=== PATIENT | female | born 1940 | race Caucasian/White ===

== ENCOUNTER 2016-10-20 06:30 | Inpatient (IN) | payer MEDICARE, OTHER ==
[2016-10-12 11:48] LABS: BASOPHILS 0.5 %; BASOPHILS ABSOLUTE 0.03 10/3/uL (0.0-0.16); EOSINOPHILS 4.2 %; EOSINOPHILS ABSOLUTE 0.25 10/3/uL (0.0-0.53); HEMATOCRIT 39.2 % (36.0-48.0); IMMATURE GRANULOCYTES 0.2 %; IMMATURE GRANULOCYTES ABSOLUTE 0.01 10/3/uL (0.0-0.11); LYMPHOCYTES 22.5 %; LYMPHOCYTES ABSOLUTE 1.33 10/3/uL (0.67-4.30); MEAN CORPUS HGB CONC 33.2 g/dL (32.0-36.0); MEAN CORPUSCULAR HEMOGLOB 31.3 pg (26.0-34.0); MEAN CORPUSCULAR VOLUME 94.5 fL (80-100); MEAN PLATELET VOLUME 10.9 fL (9.2-13.0); MONOCYTES 7.3 %; MONOCYTES ABSOLUTE 0.43 10/3/uL (0.21-1.20); NEUTROPHILS 65.3 %; NEUTROPHILS ABSOLUTE 3.86 10/3/uL (2.02-8.40); PLATELET COUNT 207 10/3/uL (150-400); RBC DISTRIBUTION WIDTH 13.3 % (12.0-16.0); RED CELL COUNT 4.15 10/6/uL (4.0-5.6); WHITE BLOOD CELLS 5.9 10/3/uL (4.5-10.5)
[2016-10-12 11:49] LABS: MANUAL DIFF NO %
[2016-10-12 11:52] LABS: ASCORBIC ACID (UR NOT ORDER) 40 (NEG); BILIRUBIN, URINE NEGATIVE (NEG); KETONE, URINE NEGATIVE (NEG); LEUKOCYTE ESTERASE(NOT OR LARGE (NEG); WBC (NOT ORDERED) (RFLEX) 2 (0-5)
[2016-10-12 11:54] LABS: PROTIME (NOT ORD) 13.2 SEC (12.0-14.5)
[2016-10-12 12:04] LABS: A/G RATIO 1.2 (0.7-1.9); ALBUMIN 3.7 G/DL (3.5-5.0); ALKALINE PHOSPHATASE 78 U/L (45-117); BUN (BLOOD UREA NITROGEN) 21 MG/DL (6-23); CHLORIDE, SERUM 107 MMOL/L (96-112); CO2 (CARBON DIOXIDE) 29 MMOL/L (24-34); CREATININE 0.89 MG/DL (0.55-1.02); GFR AFRICAN AMERICAN 74 ML/MIN (>=60); GFR NON AFRICAN AMERICAN 64 ML/MIN (>=60); GLOBULIN 3.2 G/DL (2.5-4.1); GLUCOSE, SERUM 96 MG/DL (60-99); POTASSIUM, SERUM 3.6 MMOL/L (3.5-5.3); SGOT(AST) 12 U/L (5-40); SGPT(ALT) 19 U/L (5-65); SODIUM, SERUM 145 MMOL/L (135-148); TOTAL BILIRUBIN 0.4 MG/DL (0-1.2); TOTAL PROTEIN 6.9 G/DL (6.0-8.5)
--- NOTE | ~2016-10-20 | OP ---
Record Of Operation [facility] [address] [place]. [address] NAME: JALIL ARAYA : 42 STATUS : ADM IN PAT#: [id number] AGE: 75 ADM/REG DATE : 10/20/16 MR#: [id number] REPORT SERV DATE: 10/20/16 DICTATED BY: FRANCY ARAYA JR. DATE: 10/20/16 REPORT STATUS : Draft TRANSCRIBED BY: MODL DATE: 10/20/16 DATE OF PROCEDURE: 10/20/2016 PREOPERATIVE DIAGNOSES: Chronic atrial fibrillation, hypertension, arthritis, thymoma. POSTOPERATIVE DIAGNOSES: Chronic atrial fibrillation, hypertension, arthritis, thymoma. NAME OF OPERATION: Bronchoscopy, robotic-assisted right thoracoscopy with total thymectomy, intercostal nerve block. SURGEON: Francy Araya M.D. RESIDENT SURGEON: Hammad Stacy M.D. MANAGER PHARMACEUTICAL: Michel Mcdaniels and Twyla Villanueva. ANESTHESIA: General endotracheal. FINDINGS: The patient was noted to have no contraindications to resection on bronchoscopy. 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 This was completely resected. There was no other abnormalities noted. There was some mild adhesions involving the right lung that were easily taken down with the robotic electrocautery. Final pathology is pending. Margins were grossly negative. DETAILS OF OPERATION: After adequate general anesthesia, the patient was intubated. A bronchoscopy was performed noting no endobronchial lesions. A left-sided double-lumen endotracheal tube was then placed. The patient was then positioned in the supine position. The right chest was elevated. Chest was prepped and draped in a routine sterile fashion. A small incision was made along the right lateral chest wall. A Veress needle was introduced into chest cavity where the chest insufflated to 8 cm of pressure. Trocar and camera were then introduced. Two other trocars were also placed under direct visualization. A neurosurgical nurse practitioner port was also placed. The da Luis was then docked. The instruments were placed under direct visualization. The lung adhesions were taken down with electrocautery. The mass was identified. Both a traditional cautery as well as bipolar cautery was utilized to excise the mass. The venous branches coming off the innominate vein were divided with clips and cautery. The left chest was entered into the pleural space. After completely excising the mass has placed in a specimen bag and drawn through the neurosurgical nurse practitioner port. Adequate hemostasis was obtained. CO2 was removed from chest cavity. No chest tube was placed. An intercostal nerve block was performed. Lung was reinflated. The trocar sites were closed with running Vicryl sutures. The skin was closed with running monofilament suture. A Dermabond dressing was applied, and the procedure was terminated at this point. The patient tolerated the procedure well, taken back to the recovery room in stable condition. Record Of Operation [address] [place]. [address] NAME: JALIL ARAYA : 42 STATUS : ADM IN PAT#: [id number] AGE: 75 ADM/REG DATE : 10/20/16 MR#: [id number] REPORT SERV DATE: 10/20/16 DICTATED BY: FRANCY ARAYA JR. DATE: 10/20/16 REPORT STATUS : Draft TRANSCRIBED BY: JOSHUA DATE: 10/20/16 HARLAN/JOSHUA Francy Araya Jr., M.D. / [id number] CC: Pia Hudson Jr., Leland Pamela Sud, M.D.
[~2016-10-20 06:30] MED LIST: ALIGN4 MG PO; ASAB PO; AYR SALINE NAS; CYANO1000T PO; D 5000 PO; DIOV160 PO; TOPXL50 PO; VITC500 PO
[2016-10-21 06:17] LABS: BASOPHILS 0.2 %; BASOPHILS ABSOLUTE 0.02 10/3/uL (0.0-0.16); EOSINOPHILS 0 %; HEMOGLOBIN 10.8 g/dL (12.0-16.0); IMMATURE GRANULOCYTES 0.3 %; IMMATURE GRANULOCYTES ABSOLUTE 0.03 10/3/uL (0.0-0.11); LYMPHOCYTES 11.1 %; LYMPHOCYTES ABSOLUTE 1.15 10/3/uL (0.67-4.30); MEAN CORPUS HGB CONC 32.6 g/dL (32.0-36.0); MEAN CORPUSCULAR HEMOGLOB 30.4 pg (26.0-34.0); MEAN CORPUSCULAR VOLUME 93.2 fL (80-100); MEAN PLATELET VOLUME 11.4 fL (9.2-13.0); MONOCYTES 8.9 %; MONOCYTES ABSOLUTE 0.92 10/3/uL (0.21-1.20); NEUTROPHILS 79.5 %; NEUTROPHILS ABSOLUTE 8.25 10/3/uL (2.02-8.40); PLATELET COUNT 178 10/3/uL (150-400); RBC DISTRIBUTION WIDTH 13.4 % (12.0-16.0); RED CELL COUNT 3.55 10/6/uL (4.0-5.6)
[2016-10-21 06:26] LABS: HEMATOCRIT 33.1 % (36.0-48.0); MANUAL DIFF NO %; WHITE BLOOD CELLS 10.4 10/3/uL (4.5-10.5)
[2016-10-21 06:35] LABS: CALCIUM, SERUM 9.2 MG/DL (8.5-10.4); CHLORIDE, SERUM 105 MMOL/L (96-112); CO2 (CARBON DIOXIDE) 26 MMOL/L (24-34); CREATININE 1.02 MG/DL (0.55-1.02); GFR AFRICAN AMERICAN 63 ML/MIN (>=60); GFR NON AFRICAN AMERICAN 54 ML/MIN (>=60); POTASSIUM, SERUM 3.8 MMOL/L (3.5-5.3); SODIUM, SERUM 141 MMOL/L (135-148)
[2016-10-21 06:36] LABS: BUN (BLOOD UREA NITROGEN) 15 MG/DL (6-23); GLUCOSE, SERUM 136 MG/DL (60-99)
[2016-10-21] MEDS ORDERED: MIRALAX POWDER1 PKT PO (08:51)
[2016-10-21] MEDS ORDERED: PCET PO (08:52)
== END 2016-10-21 10:40 | disposition home or self-care (01) | DRG 804 ==
LOC: SDC/OF 06:30 → PACU 12:16 → 5NO 16:05
PROVIDERS: Thoracic Surgery (Cardiothoracic Vascular Surgery)
PROC: 8E0W8CZ Robotic Assisted Procedure of Trunk Region, Via Natural or Artificial Opening Endoscopic (ICD-10-PCS; 2016-10-20)
PROC: 07TM4ZZ Resection of Thymus, Percutaneous Endoscopic Approach (ICD-10-PCS; principal; 2016-10-20 07:30)
PROC: 3E0T3CZ (ICD-10-PCS; 2016-10-20 07:30)
DX: D15.0 Benign neoplasm of thymus (principal); I48.2 Chronic atrial fibrillation; I10 Essential (primary) hypertension; M19.90 Unspecified osteoarthritis, unspecified site; M81.0 Age-related osteoporosis without current pathological fracture; Z88.0 Allergy status to penicillin; Z88.8 Allergy status to other drugs, medicaments and biological substances; Z79.82 Long term (current) use of aspirin
CPT/HCPCS: 36415; 71020; 80048; 80053; 81001; 82962; 83036; 85025; 85610; 86850; 86900; 86901; 87086; 87641; 88307; 93005; 94640; A9270-GY; J0690; J2250; J2370; J2405; J2710; J2795; J3010